=== PATIENT | female | born 1960 | race Caucasian/White ===

== ENCOUNTER 2017-11-02 18:45 | Emergency (ER) | payer OTHER, SELFPAY ==
[2017-11-02 18:47] VITALS: BP 96/45; PULSE 90; RESP 16; TEMP 37.1; O2SAT 96; BMI 21.8
--- NOTE | 2017-11-02 19:10 | CT_ITS ---
STUDY: CT ABDOMEN AND PELVIS WITHOUT CONTRAST REASON FOR EXAM: Female, 57 years old. Right flank pain and nausea RADIATION DOSAGE (If Supplied By Facility): CTDIvol = ( 6.99 ) mGy, DLP = ( 314.20 ) mGycm TECHNIQUE: Transaxial images were obtained from the dome of the diaphragm to the symphysis pubis without oral contrast, and without intravenous contrast. Sagittal and coronal images were reconstructed. Individualized dose optimization techniques were used for this CT. COMPARISON: None. FINDINGS: There is severe pectus excavatum deformity of the thorax. The visualized lung bases are unremarkable. The heart size is within normal limits. There is a minimal pericardial effusion. Normal liver. Normal gallbladder and extrahepatic biliary system. Normal spleen. Normal pancreas. Normal bilateral adrenal glands. There are several nonobstructing right renal calculi measuring up to 4 mm. There is a nonobstructing 3 mm calculus in the proximal left ureter. Normal left kidney. Normal visualized stomach. Normal small intestine. There is colonic diverticulosis with no evidence of associated diverticulitis. There is a large amount of colonic stool. The appendix is visualized and appears normal. There are calcified plaques of the abdominal aorta. Normal inferior vena cava. Normal retroperitoneum. The urinary bladder is empty. The uterus and adnexal structures are unremarkable. There is a small umbilical hernia containing fat. There are diffuse degenerative changes of the visualized lumbar spine. CT/Abdomen/Pelvis without Cont IMPRESSION: 1. Minimal pericardial effusion. 2. There are several nonobstructing right renal calculi measuring up to 4 mm. There is a nonobstructing 3 mm calculus of the proximal left ureter. There is no evidence of hydronephrosis or hydroureter. 3. Colonic diverticulosis with no evidence of associated diverticulitis. 4. There is no evidence of free intra-abdominal or intrapelvic air, fluid, or inflammatory process. Electronically Signed: Adarsh Calix MD at 20:29 EDT , Service support ,
[2017-11-02] MEDS: 0.9% Normal Saline 1,000 ML 250 ML IV (19:37)
[2017-11-02 19:55] LABS: Bacteria 0 SEEN /hpf (None Seen); Red Blood Cells-Urine 0 SEEN /hpf (0-5)
[2017-11-02 19:56] LABS: Color, Urine Amber (Yellow); Glucose, Dipstick Normal (Normal); Ketone-Dipstick 5 mg/dl (Negative); Leukocyte Esterase-Dipstick 100 /ul (Negative); Nitrite-Dipstick Positive (Negative); Occult Blood-Urine 50 /ul (Negative); Protein-Dipstick 30 mg/dl (Negative); Urine Clarity Clear (Clear); Urine Urobilinogen 4 mg/dl (Normal)
[2017-11-02 20:02] LABS: Absolute Lymphocyte Count 1.48 X10^3/ul (0.83-4.51); Absolute Neutrophil Count 12.8 X10^3/uL (2.0-7.7); Basophil# 0.03 X10^3/uL; Basophil% 0.2 % (0-1); Eosinophil# 0.08 X10^3/uL; Eosinophils% 0.5 % (0-5); Hematocrit 41.8 % (37-47); Hemoglobin 14.5 g/dl (12.0-15.0); Lymphocyte # 1.48 X10^3/ul (4.0); Lymphocyte % 9.5 % (19-41); Mean Corp Hgb Conc 34.7 g/gl (32-36); Mean Platelet Vol. 10.1 fl (6.2-12.0); Monocyte# 1.21 X10^3/uL; Monocyte% 7.7 % (0-10); Neutrophil # 12.79 X10^3/uL (2.7-7.7); Neutrophil % 81.8 % (47-70); Platelet Count 324 K/mm3 (150-450); RBC Distribution Width CV 12.5 % (11.6-14.6); RBC Distribution Width SD 42.7 fl (35.1-43.9); White Blood Count 15.6 K/mm3 (4.4-11.0)
[2017-11-02 20:04] LABS: Urine Bilirubin Dipstick 3 mg/dL (Negative)
[2017-11-02 20:05] LABS: Calcium Oxalate Crystals Ur 2+ /hpf (<or=2+); Mucous, Urine 1+ /hpf (<or=2+); Squamous Epithelial Cells - UA 0-5 SEEN /hpf (5-10); White Blood Cells 0-5 SEEN /hpf (0-5)
[2017-11-02 20:06] LABS: POSITIVE COUNT NO; POSITIVE DIFFERENTIAL NO; POSITIVE MORPHOLOGY NO
[2017-11-02 20:11] LABS: Anion Gap 7 (5-15); BUN 13 mg/dL (7-18); BUN/Creat Ratio 12.3 RATIO (10-20); Chloride 100 mmol/L (98-107); Creatinine, Serum 1.06 mg/dL (0.55-1.02); EST Glomerular Filtration Rate 57 mL/min (>60); Est Glom Filt Rate - Afr Amer 69 mL/min (>60); Estimated Creatinine Clearance 53.33 ml/min; Glucose 93 mg/dL (74-106); Potassium 3.6 mmol/L (3.5-5.1); Sodium Level 134 mmol/L (136-145)
--- NOTE | 2017-11-02 20:47 | ED.VISSUMM ---
- ER Visit Summary Date of Service: 11/02/17 Chief Complaint: Right flank pain History of Present Illness: The patient is a [address] Segal. She reports she has right flank pain that began 4 days ago. Says sharp pains 10 hours and to a 10 currently. Is worsened by nothing relieved by nothing. She has been nausea and vomited twice. No blood or emesis. Last bowel was today. No melena or hematochezia. She had hematuria, but no dysuria or frequency. Patient reports that she went to the emergency department in [place] and had an x-ray that showed a 4 mm stone. She was placed on Bactrim. Denies any fever or chills. Physical Examination: Vitals: Stable. Afebrile. General: Well-nourished and well-developed. Head: Normocephalic atraumatic. Neck: Supple, no lymphadenopathy. No JVD. Nontender. Cardiovascular: Regular rate and rhythm. No murmurs. Respiratory: No respiratory distress. Clear to auscultation bilaterally. Abdominal: Soft, nontender, nondistended, normal bowel sounds. No guarding, rebound, or peritoneal signs. Back: Nontender. Extremities: Nontender, no edema. Skin: Normal color, no rash. Neurologic: Alert and oriented ?3. Cranial nerves II through XII are intact. Normal strength and sensation. Psych: Normal affect. Test Results: CBC is marked for a white count of 15.6 with 82 segmented neutrophils and 10 lymphocytes. There is no old white count for comparison. Chem-7 is marked for sodium 134 and creatinine 1.06. LFTs are normal. Lipase is normal. UA has 2+ calcium oxalate crystals no bacteria. It is nitrite positive. CT flank shows normal appendix and several nonobstructing calculi bilaterally. No acute disease. Right upper quadrant ultrasound shows a normal distended gallbladder with a 3 mm wall no Mckenzie sign no gallstones, no pericholecystic fluid. Common bile duct is 3 mm. Emergency Department Course and Treatment: Patient refused pain or nausea medications. She is resting comfortably. Treatment Plan: Patient will be discharged with Zofran and instructed to complete her course of Bactrim. She has an appointment to see a dog or animal sitter in 2 days and a urologist in 2 weeks. She is instructed to keep these appointments. Return to the emergency department for any worsening symptoms. Disposition: To home in improved and stable condition. Impression: 1. Flank pain, uncertain cause. This note was generated with [employer] dictation software. It may contain incorrect words, spelling, and punctuation that were not noted in review of the chart prior to signing ED Disposition - Plan for ED Patient: Disposition: Home or Assisted Living Chief Complaint: Flank Pain Instructions: ED Flank Pain Uncertain Cause Prescriptions: Ondansetron [Zofran Odt] 4 mg PO Q8H PRN PRN #10 tablet PRN Reason: Nausea Referrals: Doctor,Your [STAFF PHYSICIAN] - Keep Coby appointment
[2017-11-02 20:56] VITALS: BP 122/67; PULSE 78; RESP 18; O2SAT 98
[2017-11-02] MEDS: 0.9% Normal Saline 1,000 ML 999 ML IV (20:57)
--- NOTE | 2017-11-02 21:07 | ED.DCSUM_ITS ---
- ER Visit Summary Date of Service: 11/02/17 Chief Complaint: Right flank pain History of Present Illness: The patient is a [address] Segal. She reports she has right flank pain that began 4 days ago. Says sharp pains 10 hours and to a 10 currently. Is worsened by nothing relieved by nothing. She has been nausea and vomited twice. No blood or emesis. Last bowel was today. No melena or hematochezia. She had hematuria, but no dysuria or frequency. Patient reports that she went to the emergency department in [place] and had an x-ray that showed a 4 mm stone. She was placed on Bactrim. Denies any fever or chills. Physical Examination: Vitals: Stable. Afebrile. General: Well-nourished and well-developed. Head: Normocephalic atraumatic. Neck: Supple, no lymphadenopathy. No JVD. Nontender. Cardiovascular: Regular rate and rhythm. No murmurs. Respiratory: No respiratory distress. Clear to auscultation bilaterally. Abdominal: Soft, nontender, nondistended, normal bowel sounds. No guarding, rebound, or peritoneal signs. Back: Nontender. Extremities: Nontender, no edema. Skin: Normal color, no rash. Neurologic: Alert and oriented ?3. Cranial nerves II through XII are intact. Normal strength and sensation. Psych: Normal affect. Test Results: CBC is marked for a white count of 15.6 with 82 segmented neutrophils and 10 lymphocytes. There is no old white count for comparison. Chem-7 is marked for sodium 134 and creatinine 1.06. LFTs are normal. Lipase is normal. UA has 2+ calcium oxalate crystals no bacteria. It is nitrite positive. CT flank shows normal appendix and several nonobstructing calculi bilaterally. No acute disease. Right upper quadrant ultrasound shows a normal distended gallbladder with a 3 mm wall no Mckenzie sign no gallstones, no pericholecystic fluid. Common bile duct is 3 mm. Emergency Department Course and Treatment: Patient refused pain or nausea medications. She is resting comfortably. Treatment Plan: Patient will be discharged with Zofran and instructed to complete her course of Bactrim. She has an appointment to see a manager of procurement in 2 days and a urologist in 2 weeks. She is instructed to keep these appointments. Return to the emergency department for any worsening symptoms. Disposition: To home in improved and stable condition. Impression: 1. Flank pain, uncertain cause. This note was generated with [employer] dictation software. It may contain incorrect words, spelling, and punctuation that were not noted in review of the chart prior to signing ED Disposition - Plan for ED Patient: Disposition: Home or Assisted Living Chief Complaint: Flank Pain Instructions: ED Flank Pain Uncertain Cause Prescriptions: Ondansetron [Zofran Odt] 4 mg PO Q8H PRN PRN #10 tablet PRN Reason: Nausea Referrals: Doctor,Your [STAFF PHYSICIAN] - Keep Coby appointment
--- NOTE | 2017-11-02 21:07 | US_ITS ---
STUDY: ABDOMINAL ULTRASOUND - RIGHT UPPER QUADRANT REASON FOR VISIT: Female, 57 years old. Abdominal pain TECHNIQUE: Ultrasound evaluation of the right upper quadrant was performed with real-time and static forde-scale imaging. TECHNICAL QUALITY: Adequate. COMPARISON: None. FINDINGS: Liver: The liver measures 14.3 cm. There is normal echogenicity of the liver. The bile ducts are within normal limits. There is hepatic color flow. The direction of portal flow is hepatopetal. There is no demonstrated mass lesion. Gallbladder: Normal distended gallbladder. The gallbladder wall measures 3 mm. There is a negative sonographic Mckenzie's sign. There is no pericholecystic fluid. There are no gallstones. Common Bile Duct (C.B.D.): The common bile duct measures 3 mm. Pancreas: Normal size of the head, body and tail of the pancreas. There is normal echogenicity of the pancreas. There is no demonstrated pancreatic mass or cyst. Right Kidney: Normal size of the right kidney. The right kidney measures 9.4 x 5.0 x 4.4 cm. Normal renal cortex. The right cortex measures 1.0 cm. There is no demonstrated renal mass or cyst. Several right renal echogenic foci are noted consistent with calculi. These were seen on today's CT study. There is no hydronephrosis. US/Gallbladder IMPRESSION: Right nephrolithiasis. The remainder the study is unremarkable. Electronically Signed: Adarsh Calix MD at 21:54 EDT , Service support ,
[2017-11-02 21:39] LABS: AST(SGOT) 25 U/L (15-37); Alanine Aminotransfer ALT/SGPT 29 U/L (13-56); Albumin, Serum 4.2 g/dL (3.2-5.0); Alkaline Phosphatase 88 U/L (45-117); Bilirubin, Direct 0.07 mg/dL (0.00-0.30); Globulin 3.5 g/dL (2.2-4.2); Lipase 129 U/L (73-393); Protein, Total 7.7 g/dL (6.4-8.2)
[2017-11-02 22:52] VITALS: BP 107/67; PULSE 79; RESP 16; O2SAT 99
== END 2017-11-02 22:53 | disposition home or self-care (01) ==
LOC: ED 20:10
PROVIDERS: Emergency Provider Emergency Medicine
DX: R10.9 Unspecified abdominal pain (principal); R11.2 Nausea with vomiting, unspecified; R31.9 Hematuria, unspecified; M19.90 Unspecified osteoarthritis, unspecified site; Z79.899 Other long term (current) drug therapy; Z87.442 Personal history of urinary calculi
CPT/HCPCS: 74176; 76705; 80048; 80076; 81001; 83690; 85025; 96360; 96361; 99283; J7030; A4216

== ENCOUNTER 2018-04-20 23:36 | Emergency (ER) | payer OTHER, SELFPAY ==
[2018-04-20 23:37] VITALS: BP 120/71; PULSE 88; RESP 16; TEMP 36.5; O2SAT 98; BMI 22.3
--- NOTE | 2018-04-21 00:59 | ED.RN ---
PT REQUESTED RING BE REMOVED. RING REMOVED VIA RING CUTTERS
--- NOTE | 2018-04-21 01:15 | RAD_ITS ---
STUDY: X-RAY - RIGHT HAND, ATTENTION LITTLE FINGER REASON FOR EXAM: Female, 57 years old. Injured little finger. TECHNIQUE: 3 view(s) of the finger were obtained. COMPARISON: None. FINDINGS: Alignment is normal. On the lateral view there is a 1 mm avulsion fracture involving the proximal volar corner base of the middle phalanx. No significant soft tissue swelling. RAD/Finger(s) Min 2 Views IMPRESSION: Small avulsion fracture base of the middle phalanx. Electronically Signed: Jarrod Bryant MD at 2:01 EDT , Service support ,
--- NOTE | 2018-04-21 01:34 | ED.VISSUMM ---
- ER Visit Summary Date of Service: 04/21/18 Chief Complaint: Right fifth digit swelling History of Present Illness: The patient is a 57 F presents for increasing swelling right fifth digit since this morning. States stumbled and caught the wall, noted swelling is increasing throughout the day. There was no falls. Had a ring on it. This was removed by nursing in the emergency department. No paresthesias. No anticoagulation medicines. Physical Examination: General: Alert and oriented ?3, no acute distress HEENT: Normocephalic, atraumatic. Moist mucosa membranes Neck: supple, nontender. Cardiovascular: Regular rate and rhythm, no murmurs Respiratory: Normal breath sounds, symmetric, no distress Abdomen: Soft, nontender, nondistended Extremities: Right hand: Fifth digit: Ring removed by nursing. Ecchymosis proximal phalanx and PIP joint. No deformities. Skin intact. Neurovascular intact distally Neuro: no focal neurological deficits. Test Results: Right fifth digit x-ray: No fracture or dislocation Emergency Department Course and Treatment: Ring was removed by nursing. Symptoms stable and more improved. No deformities of the fingers, x-ray is obtained due to ecchymosis reviewed by myself shows no fracture dislocation. AlumaFoam splint provided. Tylenol Motrin discussed to use as needed. Follow-up with your PCP. Treatment Plan: [] Disposition: Discharge Impression: Right pinky contusion This note was generated with [employer] dictation software. It may contain incorrect words, spelling, and punctuation that were not noted in review of the chart prior to signing ED Disposition - Plan for ED Patient: Disposition: Home or Assisted Living Chief Complaint: Upper Extremity Injury Diagnosis: Contusion of right little finger Instructions: ED Sprain Finger Referrals: [facility] Doctor,Out of [Primary Care Provider] - 5-7 Days
[2018-04-21 02:04] VITALS: RESP 14
== END 2018-04-21 02:04 | disposition home or self-care (01) ==
PROVIDERS: Emergency Provider Emergency Medicine
DX: S62.626A Displaced fracture of middle phalanx of right little finger, initial encounter for closed fracture (principal); W18.40XA Slipping, tripping and stumbling without falling, unspecified, initial encounter; Y93.9 Activity, unspecified; Y92.9 Unspecified place or not applicable; Y99.9 Unspecified external cause status; Z79.899 Other long term (current) drug therapy; Z87.442 Personal history of urinary calculi
CPT/HCPCS: 73140; 99283